=== PATIENT | male | born 2005 | race Caucasian/White ===

== ENCOUNTER 2023-07-06 13:53 | Emergency (ER) | payer BC, SELFPAY ==
[2023-07-06 14:06] VITALS: BP 91/76; PULSE 108; RESP 16; TEMP 37.1; O2SAT 98
[2023-07-06 14:09] VITALS: BP 91/76; PULSE 108; RESP 16; TEMP 37.1; O2SAT 98
--- NOTE | 2023-07-06 14:14 | ED.DENTAL ---
HPI - Dental/Oral General Chief complaint: Dental/Oral Stated complaint: Pain on left side of face Time Seen by Provider: 07/06/23 14:14 Source: patient Mode of arrival: ambulatory Limitations: no limitations History of Present Illness HPI Narrative: 17-year-old male presents with complaint of intermittent pain and swelling to left lower dental for approximately 2 months. States that symptoms started after having wisdom teeth removed. Follow back up with oral surgeon an oral surgeon told him normal and to wait it out. Patient reports yesterday pain worse and radiating into left cheek. Worse when chewing. Has a dentist but has not called to schedule appointment. All systems reviewed negative except as noted above. Related Data Allergies Allergy/AdvReac Type Severity Reaction Status Date / Time No Known Allergies Allergy Mild Verified 07/06/23 14:08 Review of Systems Review of Systems: CONSTITUTIONAL: Denies fever, chills, or sweats. EYES: Denies visual changes, redness, or discharge. ENT: Denies rhinorrhea, congestion, sore throat, or otalgia. Reports left lower and upper dental pain. CARDIOVASCULAR: Denies chest pain, palpitations, or edema. RESPIRATORY: Denies cough or dyspnea. GASTROINTESTINAL: Denies abdominal pain, nausea, vomiting, or diarrhea. GENITOURINARY: Denies dysuria or hematuria. SKIN: Denies rash or itching. MUSCULOSKELETAL: Denies back pain, joint pain, or myalgia. NEUROLOGIC: Denies headache, numbness, or weakness. PSYCHIATRIC: Denies anxiety or depression. All other systems reviewed are negative, except as documented in HPI. PMFSH Comments At time of signature, agree with nursing past medical, surgical, social and family history. There is no relevant family history pertinent to the presenting complaint. Exam Narrative: GENERAL: This is a well-nourished, well-developed patient, in no apparent distress. HEAD: normocephalic, atraumatic. EYES: PERRL. Sclera clear/white. Vision is grossly intact. EARS: External ears normal NOSE: External nose normal MOUTH: No erythema, swelling or fluctuance. No tenderness on palpation. No tenderness to TMJ. NECK: Neck supple, non-tender without lymphadenopathy, masses or thyromegaly. CARDIOVASCULAR: Regular rate and rhythm without murmurs, gallops, or rubs. RESPIRATORY: Clear to auscultation. Breath sounds equal bilaterally. No wheezes, rales, or rhonchi. SKIN: warm, Dry, intact with no suspicious lesions or rash, good texture and turgor. NEURO: awake, alert, and oriented to person, place and time. There were no obvious focal neurologic abnormalities. EXTREMITIES: No joint tenderness, effusion, or edema noted. Course Course Level of Care: Express Care Visit Vital Signs Vital signs: Vital Signs Temperature 37.1 C 07/06/23 14:06 Pulse Rate 108 H 07/06/23 14:06 Respiratory Rate 16 07/06/23 14:06 Blood Pressure 91/76 L 07/06/23 14:06 Pulse Oximetry 98 07/06/23 14:06 Temperature 37.1 C 07/06/23 14:09 Pulse Rate 108 H 07/06/23 14:09 Respiratory Rate 16 07/06/23 14:09 Blood Pressure 91/76 L 07/06/23 14:09 Pulse Oximetry 98 07/06/23 14:09 Reviewed MDM - Dental/Oral MDM Narrative Medical decision making narrative: Patient is aware of diagnosis, understands and agrees to treatment plan. Anticipatory guidance given. Patient agrees to follow-up as directed and is aware of reasons to seek care at the emergency department. Portions of this record may have been created with voice recognition software pt is well appearing. no pain distress. no tenderness on palpation. will prescribed abx as precaution and [facility] Discharge Plan Discharge Clinical Impression: Pain, dental Patient Disposition: Home, Self-Care Condition: Stable Instructions: Antibiotic Form, Toothache (ED) Additional Instructions: Take antibiotic as prescribed until gone. Take Tylenol or ibuprofen as needed for pa
== END 2023-07-06 14:26 | disposition home or self-care (01) ==
PROVIDERS: Emergency Provider Nurse Practitioner Family
DX: K08.89 Other specified disorders of teeth and supporting structures (principal)
CPT/HCPCS: 99213; G0463

== ENCOUNTER 2023-07-10 12:13 | Emergency (ER) | payer BC, SELFPAY ==
--- NOTE | ~2023-07-10 | CT_ITS ---
Non-contrast Head CT History: Headache Technique: Axial non-contrast imaging of the brain was performed. Dose reduction technique was used on this scan by utilizing automated exposure control and iterative reconstruction technique. The dose -length product (DLP) was 605.33 mGy-cm. Findings: There is no evidence of intracranial hemorrhage, mass lesion, or acute infarct. Brain par enchyma appears normal. The ventricles and subarachnoid spaces are normal in size. The calvarium ap pears normal. The visualized paranasal sinuses and mastoid air cells are clear. Impression: No significant abnormality seen. Reviewed, dictated and finalized at location . Impression: No significant abnormality seen.
[2023-07-10 12:16] VITALS: BP 116/80; PULSE 80; RESP 16; TEMP 37.1; O2SAT 94
--- NOTE | 2023-07-10 13:57 | ED.GENADULT ---
HPI - General Adult General Chief complaint: Unspecified Stated complaint: Depression/pain/headache Time Seen by Provider: 07/10/23 12:28 History of Present Illness HPI narrative: Mayur Montanez is a 17 y/o male who presents today with concern for intermittent all over body pain that moves around to different areas, with fairly consistent headaches that has been going on for about a week. Mayur explains that he has been dealing with a lot of psychiatric issues that started 3 years ago when he suddenly developed a panic attack and started to have thoughts of suicide out of no where. He states that he has been on multiple different medications for depression and OCD and he starts them is on them briefly and then is weened off because he is not completely satisfied with how he feels. The last medication that he tried was Parnate which he only took for 2 weeks and felt horrible on it and stopped, and now he has been off of it for a week. He feels that he has been having increased body pain that is sporadic since stopping that medication he is concerned that he has trigeminal neuralgia or fibromyalgia or an acute infection somehow He is intermittently tearful and is worried that he will feel pain forever He is currently getting regular therapy sessions and has a follow up appointment next week to get started on a new medication His mom is here with him and also states that he went to an for this and wanted a head CT and they told him to go to his PCP for that and his PCP told him to go to the ER to get a head CT, so basically today he would like some medical clearance with a head CT, he denies SI/HI no auditory or visual hallucinations. Related Data Allergies Allergy/AdvReac Type Severity Reaction Status Date / Time No Known Allergies Allergy Mild Verified 07/10/23 12:16 Review of Systems Review of Systems: CONSTITUTIONAL: Denies fever, chills, or sweats. EYES: Denies visual changes, redness, or discharge. ENT: Denies rhinorrhea, congestion, sore throat, or otalgia. CARDIOVASCULAR: Denies chest pain, palpitations, or edema. RESPIRATORY: Denies cough or dyspnea. GASTROINTESTINAL: Denies abdominal pain, nausea, vomiting, or diarrhea. GENITOURINARY: Denies dysuria or hematuria. SKIN: Denies rash or itching. MUSCULOSKELETAL:reports sporadic all over random pain to different areas of his body NEUROLOGIC: Denies headache, numbness, dizziness, or weakness. PSYCHIATRIC: reports anxiety/ off and on depression PMFSH Social History Social History Substance use type: does not use Exam Narrative: GENERAL: Well-appearing, well-nourished, and in no acute distress. HEAD: Normocephalic, atraumatic. EYES: PERRLA and EOMI. ENT: Nares clear, no rhinorrhea or epistaxis. Mucous membranes moist. Oropharynx without tonsillar hypertrophy exudate or other lesions. NECK: Supple. No adenopathy or masses. No carotid bruits or JVD CHEST: Clear to auscultation. No respiratory distress. No wheezes rales or rhonchi HEART: Regular rate and rhythm. No murmur heard. Normal peripheral pulses. ABDOMEN: Soft, nontender, nondistended, normal active bowel sounds. EXTREMITIES: Normal range of motion. No edema. SKIN: Warm, dry, no rash. NEURO: No focal deficits. Alert and oriented x3. PSYCH: calm/ tearful / anxious with a lot of concerns and worries. Course Vital Signs Vital signs: Vital Signs Temperature 37.1 C 07/10/23 12:16 Pulse Rate 80 07/10/23 12:16 Respiratory Rate 16 07/10/23 12:16 Blood Pressure 116/80 07/10/23 12:16 Pulse Oximetry 94 07/10/23 12:16 Oxygen Delivery Room Air 07/10/23 12:16 Temperature 37.1 C 07/10/23 12:16 Pulse Rate 80 07/10/23 12:16 Respiratory Rate 16 07/10/23 12:16 Blood Pressure 116/80 07/10/23 12:16 Pulse Oximetry 94 07/10/23 12:16 Oxygen Delivery Room Air 07/10/23 12:16 Medical Decision Making MDM Narrative M
[2023-07-10] MEDS: CYCLOBENZAPRINE HCL 10 MG TABLET PO (14:09)
[2023-07-10 14:22] LABS: Basophils Percent Auto 0.6 % (0.2-1.2); Eosinophils Percent Auto 0.3 % (0-4.4); Hematocrit 47.5 % (42.0-52.0); Immature Granulocyte Absolute 0.01 K/mm3 (0.00-0.031); Immature Granulocyte Percent A 0.2 % (0-0.5); Lymphocytes Absolute Auto 1.65 K/mm3 (0.9-3.2); Lymphocytes Percent Auto 26.3 % (18.3-44.2); Mean Corpuscular HGB Conc 33.7 g/dl (32-36); Mean Corpuscular Volume 92.1 fl (80-100); Mean Platelet Volume 10.7 fl (7.4-10.4); Monocytes Absolute Auto 0.3 K/mm3 (0.1-0.6); Monocytes Percent Auto 5.1 % (2.6-8.5); Neutrophils Absolute Auto 4.2 K/mm3 (1.3-6.7); Neutrophils Percent Auto 67.5 % (45.5-73.1); Platelet Count Result 223 k/mm3 (150-375); Red Blood Count 5.16 M/mm3 (4.6-6.20); Red Cell Distribution Width 11.9 % (11.5-14.5); White Blood Count 6.3 K/mm3 (4.5-10.0)
[2023-07-10 14:34] LABS: Alanine Aminotransferase 20 U/L (6-50); Albumin Level 4.9 g/dL (3.7-5.6); Alkaline Phosphatase 77 U/L (58-237); Anion Gap 8 mmol/L (8-16); Aspartate Amino Transferase 27 U/L (17-59); Bilirubin,Total 1.1 mg/dL (0.2-1.3); Blood Urea Nitrogen 12 mg/dL (8-21); Calcium 9.5 mg/dL (8.9-10.7); Carbon Dioxide 27 mmol/L (22-30); Chloride 103 mmol/L (98-107); Estimated CRCL calculation 106 ml/min; Estimated Glomerular Filt Rate > 60; Glucose 92 mg/dL (65-110); Potassium 4.3 mmol/L (3.4-5.0); Sodium 138 mmol/L (134-143)
== END 2023-07-10 17:40 | disposition home or self-care (01) ==
PROVIDERS: Emergency Provider Nurse Practitioner Family; PCP Family Medicine
DX: F41.9 Anxiety disorder, unspecified (principal)
CPT/HCPCS: 36415; 70450; 80053; 84443; 85025; 99284; A9270

== ENCOUNTER 2024-02-12 13:42 | Emergency (ER) | payer BC, SELFPAY ==
--- NOTE | 2024-02-12 13:43 | ED.URI ---
HPI - URI/Sore Throat General Chief Complaint: Upper Respiratory Infection Stated Complaint: SORE THROAT Time Seen by Provider: 02/12/24 14:08 Source: patient and RN notes reviewed Mode of arrival: ambulatory Limitations: no limitations History of Present Illness HPI Narrative: 18-year-old male presents with concern for sore throat and postnasal drainage. Reports he has had symptoms for 1 week. He denies fever, aches, chills, sweats, cough, sick contacts. MD elicited complaint: sore throat Related Data Home Medications Medication Instructions Recorded Confirmed citalopram 10 mg tablet 10 mg PO DAILY 02/12/24 02/12/24 clonazepam 0.5 mg tablet 0.5 mg PO DIRECTED 02/12/24 02/12/24 fluvoxamine 100 mg 100 mg PO DAILY 02/12/24 02/12/24 capsule,extended release 24 hr pramipexole 0.375 mg 0.375 mg PO DAILY 02/12/24 02/12/24 tablet,extended release 24 hr Allergies Allergy/AdvReac Type Severity Reaction Status Date / Time No Known Allergies Allergy Mild Verified 02/12/24 13:46 Review of Systems Review of Systems: CONSTITUTIONAL: Denies malaise, chills, sweats, or fever. EYES: Denies visual changes, redness, or discharge. ENT: Denies rhinorrhea, congestion, sinus pain, otalgia. Reports postnasal drainage and sore throat. CARDIOVASCULAR: Denies chest pain, palpitations, or edema. RESPIRATORY: Reports cough. Denies dyspnea. GASTROINTESTINAL: Denies abdominal pain, nausea, vomiting, diarrhea SKIN: Denies rash or itching. MUSCULOSKELETAL: Denies myalgia. NEUROLOGIC: Denies headache. All systems reviewed & are unremarkable except as noted in HPI and below PMFSH Social History Social History Substance use type: does not use Comments At time of signature, agree with nursing past medical, surgical, social and family history. There is no relevant family history pertinent to the presenting complaint Exam Narrative: GENERAL: Well-appearing, well-nourished, and in no acute distress. HEAD: Normocephalic EYES: PERRLA, conjunctivae clear ENT: Nares clear, turbinates edematous and erythematous, clear discharge. Mucous membranes moist. TM pearly voss with dull light reflex bilaterally; no tragal tenderness. Oropharynx not erythematous without lesions. Tonsils not enlarged and without exudate, no drooling, no hoarseness, no trismus, uvula midline. NECK: Supple. No lymphadenopathy CHEST: Clear to auscultation, breath sounds equal. No wheezing, rhonchi, rales, or stridor. No respiratory distress, speaks in full sentences. HEART: Regular rate and rhythm. No murmur heard. SKIN: Warm, dry, no rash. NEURO: Alert and oriented x3. PSYCH: Normal mood and affect Course Course Emergency Course: Patient is aware of diagnosis, understands and agrees to treatment plan. Anticipatory guidance given. Patient agrees to follow-up as directed and is aware of reasons to seek care at the emergency department. Portions of this record may have been created with voice recognition software Level of Care: Express Care Visit Vital Signs Vital signs: Reviewed. MDM - URI/Sore Throat MDM Narrative Medical decision making narrative: Differential diagnosis considered: Canela virus, strep pharyngitis, allergic rhinitis, upper respiratory tract infection, sinusitis, rhinosinusitis, nasopharyngitis. viral pharyngitis, otitis media, otitis externa, pneumonia, bronchitis, viral cough syndrome, viral syndrome, and influenza. Exam findings show no acute concerns or changes; patient is non-toxic appearing and is in no distress. Patient is appropriate for outpatient treatment and follow-up. Lab Data Attestation: I reviewed the patient's lab results. Critical Care Time Critical Care Time Critical Care Time: No Discharge Plan Discharge Clinical Impression: Upper respiratory infection Patient Disposition: Home, Self-Care Condition: Stable Instructions: Upper Respiratory Infection (E
[2024-02-12 14:03] VITALS: BP 100/60; PULSE 67; RESP 16; TEMP 36.6; O2SAT 100
== END 2024-02-12 14:19 | disposition home or self-care (01) ==
PROVIDERS: Emergency Provider Nurse Practitioner
DX: J06.9 Acute upper respiratory infection, unspecified (principal); F41.9 Anxiety disorder, unspecified
CPT/HCPCS: 87081; 87880; 99213; G0463

== ENCOUNTER 2024-12-02 09:03 | Emergency (ER) | payer BC, SELFPAY ==
[2024-12-02 09:13] VITALS: BP 116/71; PULSE 66; RESP 16; TEMP 36.4; O2SAT 99
--- NOTE | 2024-12-02 09:35 | ED.GENADULT ---
HPI - General Adult General Chief complaint: Dental/Oral Stated complaint: Face Pain Source: patient Mode of arrival: ambulatory Limitations: no limitations History of Present Illness HPI narrative: 19-year-old male presented for complaint of left facial pain over 1 week. He describes the pain as unbearable at times, currently 3/10. Described as dull ache, and stabbing into the cheek and jaw. Pain is worse with chewing or with lying flat. 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 He states the pain was better for a while and only intermittent. Denies any recent injury. Has taken Trileptal, gabapentin, ibuprofen, heat and ice without improvement. He stopped taking the medications as prescribed and stopped following up with Neurology. He states symptoms originally started after wisdom teeth were removed. Denies vision changes, hearing difficulty, nausea vomiting, fevers or chills. Related Data Home Medications ?Medication ?Instructions ?Recorded ?Confirmed ?Last Taken ?Type citalopram 10 mg tablet 10 mg PO DAILY 02/12/24 02/12/24 Unknown History clonazepam 0.5 mg tablet 0.5 mg PO DIRECTED 02/12/24 02/12/24 Unknown History fluvoxamine 100 mg 100 mg PO DAILY 02/12/24 02/12/24 Unknown History capsule,extended release 24 hr pramipexole 0.375 mg 0.375 mg PO DAILY 02/12/24 02/12/24 Unknown History tablet,extended release 24 hr Allergies Allergy/AdvReac Type Severity Reaction Status Date / Time No Known Allergies Allergy Mild Verified 12/02/24 09:39 Review of Systems Review of Systems: per HPI All systems reviewed & are unremarkable except as noted in HPI and below [facility] Social History Social History Substance use type: does not use Comments At time of signature, I have reviewed and agree with nursing past medical, surgical, social and family history unless otherwise noted. Please see nursing chart for further information. There is no relevant family history pertinent to the presenting complaint Exam Narrative: GENERAL: Well-appearing, and in no acute distress. HEAD: Normocephalic, atraumatic. EYES: EOMI. No redness or drainage. Conjunctivae normal. ENT: Mucous membranes pink and moist. No rhinorrhea. TMs normal bilaterally. Throat normal. Uvula midline. NECK: Normal AROM. Supple. CHEST: No respiratory distress. Clear to auscultation. HEART: Regular rate and rhythm. No murmur appreciated. Normal peripheral pulses. SKIN: Warm, dry, no rash. Capillary refill normal. Normal skin turgor. NEURO: No focal deficits. Alert and oriented x3. Facial sensation intact. Tender to Left TMJ area. Grimace intact. No facial droop. Gait steady. PSYCH: Normal affect. Course Course Emergency Course: Patient is aware of diagnosis, understands and agrees to treatment plan. Anticipatory guidance given. Patient agrees to follow-up as directed and is aware of reasons to seek care at the emergency department. Portions of this record may have been created with voice recognition software Level of Care: Express Care Visit Vital Signs Vital signs: Vital Signs Temperature 97.6 F 12/02/24 09:13 Pulse Rate 66 12/02/24 09:13 Respiratory Rate 16 12/02/24 09:13 Blood Pressure 116/71 12/02/24 09:13 Pulse Oximetry 99 12/02/24 09:13 Temperature 97.6 F 12/02/24 09:13 Pulse Rate 66 12/02/24 09:13 Respiratory Rate 16 12/02/24 09:13 Blood Pressure 116/71 12/02/24 09:13 Pulse Oximetry 99 12/02/24 09:13 Medical Decision Making MDM Narrative Medical decision making narrative: Discussed physical exam findings, offered steroid RX until pt can be seen by PCP next week. He states the only thing that has helped in the past is vicodin. He is advised to f/u with pcp for narcotics if indicated. Advised supportive measures and signs/symptoms to go to the ER. Pt is appropriate for outpt treatment and f/u. Differential Diagnosis Differential Diagnosis: migraine tension headache, cluster headache, trigeminal neuralgia, TMJ disorder, TIA, giant cell arteritis, sinusitis, dentalgia, cain's palsy, zoster Vital Signs Vital Signs: Vital Signs Temperature 97.6 F 12/02/24 09:13 Pulse Rate 66 12/02/24 09:13 Respiratory Rate 16 12/02/24 09:13 Blood Pressure 116/71 12/02/24 09:13 Pulse Oximetry 99 12/02/24 09:13 Temperature 97.6 F 12/02/24 09:13 Pulse Rate 66 12/02/24 09:13 Respiratory Rate 16 12/02/24 09:13 Blood Pressure 116/71 12/02/24 09:13 Pulse Oximetry 99 12/02/24 09:13 reviewed Discharge Plan Discharge Clinical Impression: Acute facial pain Patient Disposition: Home, Self-Care Condition: Stable Instructions: Trigeminal Neuralgia (ED) Additional Instructions: Take the steroid as directed Tylenol every 8 hours as needed Alternate hot cold as needed to the site. Follow-up with your PCP as scheduled next week. Go to the ER for worsening symptoms or concerns Patient Language: Kyrgyz Prescriptions: New methylprednisolone [Medrol (Ed)] 4 mg tablets,dose pack See Rx Instructions .ROUTE .COMPLEX Qty: 21 0RF Rx Instructions: orally per package directions No Action citalopram 10 mg tablet 10 mg PO DAILY clonazepam 0.5 mg tablet 0.5 mg PO DIRECTED fluvoxamine 100 mg capsule,extended release 24hr 100 mg PO DAILY pramipexole 0.375 mg tablet extended release 24 hr 0.375 mg PO DAILY pseudoephedrine HCl [12 Hour Decongestant] 120 mg tablet extended release 120 mg PO Q12H PRN (Reason: nasal congestion) Qty: 12 0RF fluticasone propionate [Flonase Allergy Relief] 50 mcg/actuation spray,suspension 2 spray NASAL DAILY 14 Days Qty: 15.8 0RF Rx Instructions: administer into each nostril Follow-up/Referrals: PHYSICIAN,[employer] [Primary Care Provider] - Time of Disposition: 09:51
== END 2024-12-02 09:53 | disposition home or self-care (01) ==
PROVIDERS: Emergency Provider Nurse Practitioner Family
DX: R51.9 Headache, unspecified (principal); F41.9 Anxiety disorder, unspecified
CPT/HCPCS: 99213; G0463